=== PATIENT | male | born 1995 ===

== ENCOUNTER 2018-12-01 18:15 | Inpatient (IN) | payer BC ==
--- NOTE | 2018-12-01 18:22 | Event Note ---
ED Screening Note ED Screening Note: Pt states he had periumbilical abd pain and now having in the RLQ +nausea no vomiting, no diarrhea had a BM yesterday last had something to eat last night PMHx anxiety no allergies to meds no abd surgeries no one in his family had appendicitis +marijuana +ETOH This initial assessment/diagnostic orders/clinical plan/treatment(s) is/are subject to change based on patients health status, clinical progression and re- assessment by fellow clinical providers in the ED. Further treatment and workup at subsequent clinical providers discretion. Patient/guardian urged not to elope from the ED as their condition may be serious if not clinically assessed and managed. Initial orders include: labs, UA, abd XR
[2018-12-01 18:45] LABS: Basophils % (Auto) 0.2 % (0.0-1.8); Hematocrit 45.2 % (35.5-45.6); Hemoglobin 15.4 gm/dl (11.8-15.2); Lymphocytes # (Auto) 1.1 K/mm3 (1.2-5.4); Lymphocytes % (Auto) 6.1 % (13.4-35.0); Mean Corpuscular HGB Conc 34 % (32-34); Mean Corpuscular Volume 93 fl (84-94); Monocytes # (Auto) 1.1 K/mm3 (0.0-0.8); Monocytes % (Auto) 6.5 % (0.0-7.3); Platelet Count 336 K/mm3 (140-440); Red Blood Count 4.88 M/mm3 (3.65-5.03); Red Cell Distribution Width 13.8 % (13.2-15.2)
[2018-12-01 19:19] LABS: Alanine Aminotransferase 60 units/L (7-56); Albumin 4.7 g/dL (3.9-5); BUN/Creatinine Ratio 18; Blood Urea Nitrogen 14 mg/dL (9-20); Calcium 9.2 mg/dL (8.4-10.2); Hemolysis Index 15
--- NOTE | 2018-12-01 19:38 | XRay Report ---
ABDOMEN 4 VIEW(S) INDICATION / CLINICAL INFORMATION: abd pain, constipation. COMPARISON: None available. FINDINGS: TUBES / LINES: None. BOWEL GAS PATTERN: Retained colonic barium is seen within the transverse, sigmoid and right colon. No bowel obstruction. FREE AIR / EXTRALUMINAL GAS: None seen. ADDITIONAL FINDINGS: No significant additional findings. IMPRESSION: 1. No significant abnormality. Signer Name: Randell Mederos MD Signed: 12/01/2018 7:33 PM Workstation Name: [id number]
[2018-12-01] MEDS ORDERED: ZOFRAN IV ONE (23:39)
[2018-12-01] MEDS ORDERED: NACL 0.9% 1000 ML 1,000 ML IV ONE (23:39)
[2018-12-01] MEDS ORDERED: PEPCID IV ONE (23:40)
[2018-12-01] MEDS ORDERED: MORPHINE IV ONE (23:40)
--- NOTE | 2018-12-02 01:42 | Cat Scan Report ---
CT abdomen pelvis w con INDICATION / CLINICAL INFORMATION: abdominal pain. TECHNIQUE: All CT scans at this location are performed using CT dose reduction for ALARA by means of automated e xposure control. COMPARISON: None available. FINDINGS: No acute disease is seen in either lower lung. ABDOMEN: The gallbladder, liver, spleen and pancreas are normal. No renal abnormalities. Mild bowel dilatation. Pelvis: The appendix is enlarged with thickened wall and periappendiceal edema. No localized fluid collections are seen in the right lower quadrant or dependently within the pelvis. No acute skeletal finding. IMPRESSION: 1. Acute appendicitis. Signer Name: Sunny Luis MD Signed: 12/02/2018 1:38 AM Workstation Name: [id number]
[2018-12-02] MEDS ORDERED: MORPHINE IV ONE (01:50)
[2018-12-02] MEDS ORDERED: ZOSYN/NS 4.5GM/100ML 4.5 GM/100 ML VIAL IV ONE (01:50)
[2018-12-02] MEDS ORDERED: ZOFRAN IV ONE (01:50)
--- NOTE | 2018-12-02 01:58 | Emergency Department Report ---
ED Abdominal Pain HPI - General Chief Complaint: Abdominal Pain Stated Complaint: LOWER ABD PAIN/NAUSEA/BLOATING Time Seen by Provider: 12/01/18 18:20 Source: patient Mode of arrival: Ambulatory Limitations: No Limitations - History of Present Illness Initial Comments: Patient is a 23 yo male with no past medical history who presents to the ED with c/o acute onset persistent severe acute RLQ abdominal pain with nausea x >12 hours. Patient states that the pain radiates to the periumbilical area. Patient states the pain is worse with any movement or palpation. Patient denies diarrhea, vomiting, fever, chills, dizziness, chest pain, shortness of breath, dysuria, any urinary frequency and urgency, testicular pain, hematuria or low back pain. MD Complaint: abdominal pain, other (nausea) -: Sudden, hour(s) (>12) Location: periumbilical, RLQ Radiation: RLQ Migration to: periumbilical, RLQ Severity: severe Severity scale (0 -10): 7 Quality: cramping, aching, sharp Consistency: constant Improves With: nothing Worsens With: movement Associated Symptoms: denies other symptoms, nausea. denies: vomiting, diarrhea, fever, chills, constipation, dysuria, hematemesis, melena, hematuria, anorexia, syncope - Related Data Allergies Allergy/AdvReac Type Severity Reaction Status Date / Time No Known Allergies Allergy Unverified 12/01/18 18:16 ED Review of Systems ROS: Stated complaint: LOWER ABD PAIN/NAUSEA/BLOATING Other details as noted in HPI Constitutional: denies: chills, fever Eyes: denies: eye pain, eye discharge, vision change ENT: denies: ear pain, throat pain Respiratory: denies: cough, shortness of breath, wheezing Cardiovascular: denies: chest pain, palpitations Endocrine: no symptoms reported Gastrointestinal: abdominal pain, nausea. denies: diarrhea Genitourinary: denies: urgency, dysuria Musculoskeletal: denies: back pain, joint swelling, arthralgia Skin: denies: rash, lesions Neurological: denies: headache, weakness, paresthesias Psychiatric: denies: anxiety, depression Hematological/Lymphatic: denies: easy bleeding, easy bruising ED Past Medical Hx - Past Medical History Hx Psychiatric Treatment: Yes (anxiety) - Surgical History Past Surgical History?: No - Social History Smoking Status: Never Smoker Substance Use Type: Alcohol, Marijuana ED Physical Exam - General Limitations: No Limitations General appearance: alert, in no apparent distress - Head Head exam: Present: atraumatic, normocephalic, normal inspection - Eye Eye exam: Present: normal appearance, PERRL, EOMI. Absent: scleral icterus Pupils: Present: normal accommodation - ENT ENT exam: Present: normal exam, normal orophraynx, mucous membranes moist, TM's normal bilaterally, normal external ear exam - Neck Neck exam: Present: normal inspection, full ROM - Respiratory Respiratory exam: Present: normal lung sounds bilaterally. Absent: respiratory distress, wheezes, rales, rhonchi, stridor, chest wall tenderness, accessory muscle use, decreased breath sounds, prolonged expiratory - Cardiovascular Cardiovascular Exam: Present: normal rhythm, tachycardia, normal heart sounds. Absent: systolic murmur, diastolic murmur, rubs, gallop - GI/Abdominal GI/Abdominal exam: Present: soft, tenderness (RLQ tenderness), guarding, rebound, normal bowel sounds. Absent: hyperactive bowel sounds, hypoactive bowel sounds, organomegaly, mass, bruit, pulsatile mass - Rectal Rectal exam: Present: deferred - Extremities Exam Extremities exam: Present: normal inspection, full ROM, normal capillary refill - Back Exam Back exam: Present: normal inspection, tenderness. Absent: CVA tenderness (L), muscle spasm, paraspinal tenderness - Neurological Exam Neurological exam: Present: alert, oriented X3 - Psychiatric Psychiatric exam: Present: normal affect, normal mood - Skin Skin exam: Present: warm, dry, intact, normal color. Absent: rash ED Course Vital Signs 12/01/18 12/02/18 12/02/18 18:20 00:14 01:20 Temperature 98.0 F 98.5 F Pulse Rate 103 H 76 Respiratory 18 16 22 Rate Blood Pressure 137/86 Blood Pressure 130/73 [Left] O2 Sat by Pulse 98 95 Oximetry - Reevaluation(s) Reevaluation #1: 12/02/18 01:56 Patient is alert and oriented 3, appears to be in pain, tachycardic in triage but in no acute distress. Lab test results were reviewed and shows acute leukocytosis of 17,500, and slightly limited ALT levels of 60. The rest of the lab test results are unremarkable. Patient was treated for pain and nausea in the ED, and also given normal saline 1 L IV bolus. Abdomen pelvis CT scan with contrast shows an enlarged appendix with thickened wall and periappendiceal edema. There are no localized fluid collections seen in the right lower quadrant or dependently within the pelvis. These findings are consistent with acute appendicitis. The gallbladder, liver, pancreas and kidneys appear all normal. Antibiotics Zosyn 4.5 mg IV was ordered in addition to pain medication and antiemetics, as well as titrated normal saline IV infusion. Patient is advised to remain nothing by mouth. I paged the general surgeon manager of environmental services Dr. Garcia, who advised that the patient be kept NPO and be admitted by the Hospitalist Physician manager of environmental services, and he shall consult on the patient in the morning. I discussed the patient's case with the Hospitalist Physician manager of environmental services Dr. Cage, who admitted the patient to the Hospital for further evaluation 12/02/18 01:58 12/02/18 02:05 ED Medical Decision Making - Lab Data Result diagrams: 12/01/18 18:38 12/01/18 18:38 - Radiology Data Radiology results: report reviewed, image reviewed Referring Physician: PETR BETH Patient Name: GENNA ALAMO Date of : 1995 Sex: Male Report Date: 2018-12-02 Report Status: [place] [address] Cat Scan Report Signed Patient: GENNA DRISCOLL MR#: [id number] : 1995 Acct:[id number] Age/Sex: 23 / M ADM Date: 12/01/18 Loc: ED Attending Dr: Ordering Physician: CHANO BHATTI Date of Service: 12/01/18 Procedure(s): CT abdomen pelvis w con Accession Number(s): [id number] cc: CHANO BHATTI CT abdomen pelvis w con INDICATION / CLINICAL INFORMATION: abdominal pain. TECHNIQUE: All CT scans at this location are performed using CT dose reduction for ALARA by means of automated exposure control. COMPARISON: None available. FINDINGS: No acute disease is seen in either lower lung. ABDOMEN: The gallbladder, liver, spleen and pancreas are normal. No renal abnormalities. Mild bowel dilatation. Pelvis: The appendix is enlarged with thickened wall and periappendiceal edema. No localized fluid collections are seen in the right lower quadrant or dependently within the pelvis. No acute skeletal finding. IMPRESSION: 1. Acute appendicitis. Signer Name: Sunny Luis MD Signed: 12/02/2018 1:38 AM Workstation Name: [id number] Transcribed By: PAULETTE Dictated By: Sunny Luis MD Electronically Authenticated By: Sunny Luis MD Signed Date/Time: 12/02/18137 DD/ 3 TD/TT: - Medical Decision Making Patient is alert and oriented 3, appears to be in pain, tachycardic in triage but in no acute distress. Lab test results were reviewed and shows acute leuk ocytosis of 17,500, and slightly limited ALT levels of 60. The rest of the lab test results are unremarkable. Patient was treated for pain and nausea in the ED, and also given normal saline 1 L IV bolus. Abdomen pelvis CT scan with contrast shows an enlarged appendix with thickened wall and periappendiceal edema. There are no localized fluid collections seen in the right lower quadrant or dependently within the pelvis. These findings are consistent with acute appendicitis. The gallbladder, liver, pancreas and kidneys appear all normal. Antibiotics Zosyn 4.5 mg IV was ordered in addition to pain medication and antiemetics, as well as titrated normal saline IV infusion. Patient is advi sed to remain nothing by mouth. I paged the general surgeon manager of environmental services Dr. Garcia, who advised that the patient be kept NPO and be admitted by the Hospitalist Physician manager of environmental services, and he shall consult on the patient in the morning. I discussed the patient's case with the Hospitalist Physician manager of environmental services Dr. Cage, who admitted the patient to the Hospital for further evaluation - Differential Diagnosis Abdominal pain in RLQ; acute appendicitis, Kidney stones; Pancreatitis Critical care attestation.: If time is entered above; I have spent that time in minutes in the direct care of this critically ill patient, excluding procedure time. ED Disposition Clinical Impression: Acute abdominal pain in right lower quadrant Acute appendicitis Qualifiers: Acute appendicitis type: unspecified acute appendicitis type Qualified Code(s): K35.80 - Unspecified acute appendicitis Disposition: OP ADMIT IP TO THIS HOSP Is pt being admited?: Yes Does the pt Need Aspirin: No Condition: Stable Referrals: SOLA PATIÑO MD [Primary Care Provider] - 3-5 Days Time of Disposition: 02:09 Print Language: PAPUA [place]
[2018-12-02] MEDS ORDERED: TYLENOL PO PRN (02:51)
[2018-12-02] MEDS ORDERED: SODIUM CHLORIDE FLUSH SYRINGE 10 ML IV PRN (02:51)
[2018-12-02] MEDS ORDERED: PERCOCET 5/325 PO PRN (02:51)
[2018-12-02] MEDS ORDERED: ZOFRAN IV PRN ×2 (02:51→10:26)
[2018-12-02] MEDS ORDERED: NS/KCL 20MEQ 20 MEQ/1,000 ML BAG IV SCH (03:00)
[2018-12-02] MEDS ORDERED: NACL 0.9% 1000 ML 1,000 ML IV SCH ×2 (03:00→10:00)
--- NOTE | 2018-12-02 03:02 | History and Physical Report ---
History of Present Illness Date of examination: 12/02/18 Chief complaint: Umbilical Pain History of present illness: Patient is a 23-year-old male with history of anxiety disorder who presented to the ED on account of a day history of umbilical Pain. He described it as sharp in character, rated 10 over 10, constant in duration and radiating to the right lower quadrant of the abdomen. No known aggravating or relieving factors. He has associated nausea without vomiting, constipation, shortness of breath and chills without fever. He denies dysuria, frequency, cough, chest pain, leg swe lling, orthopnea, PND, headaches, syncope or loss of consciousness. No reported preceding trauma. Past History Past Medical History: other (anxiety disorder and panic attacks) Past Surgical History: No surgical history Social history: other (he is an ex-cigarette smoker. He smoked for 2 years and quit 4 years ago. He has history of moderate alcohol consumption and occasional marijuana use. He denies other illicit drug use) Family history: other (father has history of diabetes. No known family history of hypertension or heart disease) Medications and Allergies Allergies Allergy/AdvReac Type Severity Reaction Status Date / Time No Known Allergies Allergy Unverified 12/01/18 18:16 Active Meds: Active Medications Acetaminophen (Tylenol) 650 mg PO Q4H PRN PRN Reason: Pain MILD(1-3)/Fever >100.5/VALLEJO Potassium Chloride/Sodium Chloride (Ns/Kcl 20meq) 20 meq in 1,000 mls @ 100 mls/hr IV DIRECT ROGELIO Piperacillin Sod/Tazobactam Sod (Zosyn/Ns 3.375gm/50ml) 3.375 gm in 50 mls @ 100 mls/hr IV Q8HR ROGELIO; Protocol Morphine Sulfate (Morphine) 4 mg IV Q4H PRN PRN Reason: Pain , Severe (7-10) Ondansetron HCl (Zofran) 4 mg IV Q4H PRN PRN Reason: Nausea And Vomiting Oxycodone/Acetaminophen (Percocet 5/325) 1 tab PO Q4H PRN PRN Reason: Pain, Moderate (4-6) Sodium Chloride (Sodium Chloride Flush Syringe 10 Ml) 10 ml IV BID ROGELIO Sodium Chloride (Sodium Chloride Flush Syringe 10 Ml) 10 ml IV PRN PRN PRN Reason: LINE FLUSH Review of Systems All systems: negative (Except as documented in the HPI, 14 point system reviewed were negative) Exam - Constitutional Vitals: Temp Pulse Resp BP Pulse Ox 98.5 F 76 19 130/73 95 12/02/18 01:20 12/02/18 01:20 12/02/18 02:06 12/02/18 01:20 12/02/18 01:20 General appearance: Present: no acute distress, well-nourished - EENT Eyes: Present: PERRL, EOM intact ENT: hearing intact, clear oral mucosa - Neck Neck: Present: supple, normal ROM - Respiratory Respiratory effort: normal Respiratory: bilateral: CTA - Cardiovascular Rhythm: regular Heart Sounds: Present: S1 & S2. Absent: rub, click - Extremities Extremities: pulses symmetrical, No edema Peripheral Pulses: within normal limits - Abdominal General gastrointestinal: Present: soft, tender (right lower quadrant), non- distended, normal bowel sounds Male genitourinary: Present: deferred - Integumentary Integumentary: Present: clear, warm, dry - Musculoskeletal Musculoskeletal: gait normal, strength equal bilaterally - Psychiatric Psychiatric: appropriate mood/affect, intact judgment & insight - Neurologic Neurologic: CNII-XII intact, moves all extremities Results - Labs CBC & Chem 7: 12/01/18 18:38 12/01/18 18:38 Labs: Laboratory Last Values WBC 17.5 K/mm3 (4.5-11.0) H 12/01/18 18:38 RBC 4.88 M/mm3 (3.65-5.03) 12/01/18 18:38 Hgb 15.4 gm/dl (11.8-15.2) H 12/01/18 18:38 Hct 45.2 % (35.5-45.6) 12/01/18 18:38 MCV 93 fl (84-94) 12/01/18 18:38 MCH 32 pg (28-32) 12/01/18 18:38 MCHC 34 % (32-34) 12/01/18 18:38 RDW 13.8 % (13.2-15.2) 12/01/18 18:38 Plt Count 336 K/mm3 (140-440) 12/01/18 18:38 Lymph % (Auto) 6.1 % (13.4-35.0) L 12/01/18 18:38 [place] % (Auto) 6.5 % (0.0-7.3) 12/01/18 18:38 Eos % (Auto) 0.0 % (0.0-4.3) 12/01/18 18:38 Baso % (Auto) 0.2 % (0.0-1.8) 12/01/18 18:38 Lymph # 1.1 K/mm3 (1.2-5.4) L 12/01/18 18:38 [place] # 1.1 K/mm3 (0.0-0.8) H 12/01/18 18:38 Eos # 0.0 K/mm3 (0.0-0.4) 12/01/18 18:38 Baso # 0.0 K/mm3 (0.0-0.1) 12/01/18 18:38 Seg Neutrophils % 87.2 % (40.0-70.0) H 12/01/18 18:38 Seg Neutrophils # 15.2 K/mm3 (1.8-7.7) H 12/01/18 18:38 Sodium 140 mmol/L (137-145) 12/01/18 18:38 Potassium 3.7 mmol/L (3.6-5.0) 12/01/18 18:38 Chloride 101.7 mmol/L (98-107) 12/01/18 18:38 Carbon Dioxide 25 mmol/L (22-30) 12/01/18 18:38 17 mmol/L 12/01/18 18:38 BUN 14 mg/dL (9-20) 12/01/18 18:38 0.8 mg/dL (0.8-1.5) 12/01/18 18:38 Estimated GFR > 60 ml/min 12/01/18 18:38 18 % 12/01/18 18:38 Glucose 103 mg/dL (75-100) H 12/01/18 18:38 Calcium 9.2 mg/dL (8.4-10.2) 12/01/18 18:38 0.90 mg/dL (0.1-1.2) 12/01/18 18:38 AST 29 units/L (5-40) 12/01/18 18:38 ALT 60 units/L (7-56) H 12/01/18 18:38 95 units/L (35-129) 12/01/18 18:38 7.8 g/dL (6.3-8.2) 12/01/18 18:38 4.7 g/dL (3.9-5) 12/01/18 18:38 1.5 % 12/01/18 18:38 15 units/L (13-60) 12/01/18 18:38 - Imaging and Cardiology CT scan - abdomen: report reviewed CT scan - pelvis: report reviewed Assessment and Plan Assessment and plan: Acute appendicitis -On NPO and IV antibiotic with Zosyn -Surgery consulted in the ED SIRS due to the appendicitis -On IV antibiotic Transaminitis -Likely due to the acute process -We will monitor levels Anxiety disorder and panic attacks -Resume home medications DVT prophylaxis with SCD Time spent: 35 minutes
[2018-12-02] MEDS ORDERED: ATIVAN IV PRN (03:08)
[2018-12-02 03:28] LABS: Bilirubin,Urine NEG (Negative); Blood,Urine NEG (Negative); Color,Urine Straw (Yellow); Mucus,Urine FEW /HPF; Protein,Urine <15 mg/dL mg/dL (Negative); Urobilinogen,Urine < 2.0 mg/dL (<2.0)
[2018-12-02] MEDS: MORPHINE IV PRN ×3 (05:23→17:12)
[2018-12-02] MEDS: ZOSYN/NS 3.375GM/50ML 3.375 GM/50 ML BAG IV SCH ×3 (06:23→23:00)
[2018-12-02] MEDS ORDERED: SODIUM CHLORIDE FLUSH SYRINGE 10 ML IV SCH (10:00)
--- NOTE | 2018-12-02 10:15 | Consultation ---
History of Present Illness Consult date: 12/02/18 Reason for consult: abdominal pain Requesting physician: PETR BETH Chief complaint: lower abdominal pain - History of present illness History of present illness: 23yo M presented to emergency room with acute onset of lower abdominal pain. Reports that yesterday he began to have cramping sensations near the belly button. It progressed to the right lower quadrant. The pain progressively became worse. Had mild nausea but no vomiting. Denies any fevers or chills. Did have some brief sweating. Thing like this before. Positive bloating. Past History Past Medical History: other (anxiety disorder and panic attacks) Past Surgical History: No surgical history Social history: other (he is an ex-cigarette smoker. He smoked for 2 years and quit 4 years ago. He has history of moderate alcohol consumption and occasional marijuana use. He denies other illicit drug use) Family history: other (father has history of diabetes. No known family history of hypertension or heart disease) Medications and Allergies Allergies Allergy/AdvReac Type Severity Reaction Status Date / Time No Known Allergies Allergy Unverified 12/01/18 18:16 Home Medications Medication Instructions Recorded Confirmed Last Taken Type No Known Home Medications [No 12/02/18 12/02/18 Unknown History Reported Home Medications] Active Meds: Active Medications Acetaminophen (Tylenol) 650 mg PO Q4H PRN PRN Reason: Pain MILD(1-3)/Fever >100.5/VALLEJO Potassium Chloride/Sodium Chloride (Ns/Kcl 20meq) 20 meq in 1,000 mls @ 100 mls/hr IV DIRECT ROGELIO Last Admin: 12/02/18 06:22 Dose: 100 mls/hr Documented by: Piperacillin Sod/Tazobactam Sod (Zosyn/Ns 3.375gm/50ml) 3.375 gm in 50 mls @ 100 mls/hr IV Q8HR ROGELIO; Protocol Last Admin: 12/02/18 06:23 Dose: 100 mls/hr Documented by: Sodium Chloride (Nacl 0.9% 1000 Ml) 1,000 mls @ 0 mls/hr IV ONCE ROGELIO Stop: 12/03/18 10:01 Lorazepam (Ativan) 1 mg IV Q4H PRN PRN Reason: Agitation Morphine Sulfate (Morphine) 4 mg IV Q4H PRN PRN Reason: Pain , Severe (7-10) Last Admin: 12/02/18 10:13 Dose: 4 mg Documented by: Ondansetron HCl (Zofran) 4 mg IV Q4H PRN PRN Reason: Nausea And Vomiting Oxycodone/Acetaminophen (Percocet 5/325) 1 tab PO Q4H PRN PRN Reason: Pain, Moderate (4-6) Sodium Chloride (Sodium Chloride Flush Syringe 10 Ml) 10 ml IV BID ROGELIO Sodium Chloride (Sodium Chloride Flush Syringe 10 Ml) 10 ml IV PRN PRN PRN Reason: LINE FLUSH Review of Systems - Constitutional sweats, no fever, no chills, no chronic pain - Cardiovascular no chest pain, no shortness of breath - Respiratory no cough - Gastrointestinal abdominal pain, nausea, dyspepsia/bloating, no vomiting - Genitourinary no flank pain - Muskuloskeletal no low back pain - Integumentary no rash, no wounds Exam Vital Signs Temp Pulse Resp BP Pulse Ox 98.0 F 103 H 18 137/86 98 12/01/18 18:20 12/01/18 18:20 12/01/18 18:20 12/01/18 18:20 12/01/18 18:20 - General physical appearance Positive: no distress, moderate pain, obese - Eyes Positive: normal occular movement - Respiratory Positive: normal expansion, normal respiratory effort, clear to auscultation - Cardiovascular Rhythm: regular - Abdomen Abdomen: Present: soft, tender (in RLQ and a little in the epigastric area), bowel sounds hypoactive. Absent: distended, masses, rebound, guarding, rigid, wound, surgical scars - Integumentary no rash, no growths, no abnormal pigmentation - Neurologic Neurologic: alert and oriented to time, place and person, motor strength and sensation are grossly intact - Psychiatric Psychiatric: appropriate mood/affect, intact judgment & insight, cooperative Results - Labs 12/01/18 18:38 12/01/18 18:38 Abnormal lab results 12/01/18 12/01/18 12/02/18 Range/Units 18:38 18:38 02:28 WBC 17.5 H (4.5-11.0) K/mm3 Hgb 15.4 H (11.8-15.2) gm/dl Lymph % (Auto) 6.1 L (13.4-35.0) % Lymph # 1.1 L (1.2-5.4) K/mm3 [place] # 1.1 H (0.0-0.8) K/mm3 Seg Neutrophils % 87.2 H (40.0-70.0) % Seg Neutrophils # 15.2 H (1.8-7.7) K/mm3 Glucose 103 H (75-100) mg/dL ALT 60 H (7-56) units/L Ur Specific [place] 1.060 H (1.003-1.030) Diabetes panel 12/01/18 Range/Units 18:38 Sodium 140 (137-145) mmol/L Potassium 3.7 (3.6-5.0) mmol/L Chloride 101.7 (98-107) mmol/L Carbon Dioxide 25 (22-30) mmol/L BUN 14 (9-20) mg/dL Creatinine 0.8 (0.8-1.5) mg/dL Glucose 103 H (75-100) mg/dL Calcium 9.2 (8.4-10.2) mg/dL AST 29 (5-40) units/L ALT 60 H (7-56) units/L Alkaline Phosphatase 95 (35-129) units/L Total Protein 7.8 (6.3-8.2) g/dL Albumin 4.7 (3.9-5) g/dL Calcium panel 12/01/18 Range/Units 18:38 Calcium 9.2 (8.4-10.2) mg/dL Albumin 4.7 (3.9-5) g/dL Pituitary panel 12/01/18 Range/Units 18:38 Sodium 140 (137-145) mmol/L Potassium 3.7 (3.6-5.0) mmol/L Chloride 101.7 (98-107) mmol/L Carbon Dioxide 25 (22-30) mmol/L BUN 14 (9-20) mg/dL Creatinine 0.8 (0.8-1.5) mg/dL Glucose 103 H (75-100) mg/dL Calcium 9.2 (8.4-10.2) mg/dL Adrenal panel 12/01/18 Range/Units 18:38 Sodium 140 (137-145) mmol/L Potassium 3.7 (3.6-5.0) mmol/L Chloride 101.7 (98-107) mmol/L Carbon Dioxide 25 (22-30) mmol/L BUN 14 (9-20) mg/dL Creatinine 0.8 (0.8-1.5) mg/dL Glucose 103 H (75-100) mg/dL Calcium 9.2 (8.4-10.2) mg/dL Total Bilirubin 0.90 (0.1-1.2) mg/dL AST 29 (5-40) units/L ALT 60 H (7-56) units/L Alkaline Phosphatase 95 (35-129) units/L Total Protein 7.8 (6.3-8.2) g/dL Albumin 4.7 (3.9-5) g/dL - Imaging CT scan - abdomen: report reviewed, image reviewed CT scan - pelvis: report reviewed, image reviewed Assessment and Plan - Patient Problems (1) Acute appendicitis Current Visit: Yes Status: Acute Qualifiers: Acute appendicitis type: unspecified acute appendicitis type Qualified Code(s): K35.80 - Unspecified acute appendicitis Plan to address problem: Pt stable. Discussed surgery vs medical mgmt. Pros and cons discussed for each. Pt elected surgery. Procedure, risks, benefits discussed. All questions answered. Consent obtained. Will proceed to OR today. time=30min
[2018-12-02] MEDS ORDERED: SUBLIMAZE IV PRN (10:26)
--- NOTE | 2018-12-02 11:33 | Event Note ---
Date: 12/02/18 Patient seen and examined, Continue current outlined treatment plan. Otto Surgeon. Patient for OR today.
[2018-12-02] MEDS ORDERED: SUBLIMAZE ONE (12:09)
[2018-12-02] MEDS ORDERED: ZEMURON IV ONE (12:09)
[2018-12-02] MEDS ORDERED: DIPRIVAN 10 MG/ML IV ONE (12:10)
[2018-12-02] MEDS ORDERED: VERSED ONE (12:10)
[2018-12-02] MEDS ORDERED: NACL 0.9% 1000 ML 1,000 ML ONE (12:49)
--- NOTE | 2018-12-02 13:00 | Anesthesia Day of Surgery ---
Anesthesia Day of Surgery - Day of Surgery Patient Examined: Yes Patient H&P Reviewed: Yes Patient is NPO: Yes
--- NOTE | 2018-12-02 13:01 | Anesthesia Consultation ---
Anesthesia Consult and Med Hx Date of service: 12/02/18 - Airway Anesthetic Teeth Evaluation: Good ROM Head & Neck: Adequate Mental/Hyoid Distance: Adequate Mallampati Class: Class II Intubation Access Assessment: Good - Pre-Operative Health Status ASA Pre-Surgery Classification: ASA2, Emergency Proposed Anesthetic Plan: General - Pulmonary Hx Smoking: Yes (marijuana) Hx Asthma: No SOB: No COPD: No Hx Pneumonia: No Hx Sleep Apnea: No - Cardiovascular System Hx Hypertension: No Hx Coronary Artery Disease: No Hx Heart Attack/AMI: No Hx Angina: No Hx Percutaneous Transluminal Coronary Angioplasty (PTCA): No Hx Pacemaker: No Hx Internal Defibrillator: No Hx Valvular Heart Disease: No Hx Heart Murmur: No Hx Peripheral Vascular Disease: No - Central Nervous System Hx Seizures: No CVA: No Hx Psychiatric Problems: Yes (Anxiety and panic attacks) - Gastrointestinal Hx Ulcer: No - Endocrine Hx Renal Disease: No Hx End Stage Renal Disease: No Hx Cirrhosis: No Hx Liver Disease: No Hx Hypothyroidism: No Hx Hyperthyroidism: No - Hematic Hx Sickle Cell Disease: No - Other Systems Hx Alcohol Use: Yes Hx Substance Use: Yes (MJ)
[2018-12-02] MEDS ORDERED: MARCAINE 0.5% INFILTRATI ONE ×2 (13:12→13:18)
[2018-12-02] MEDS ORDERED: XYLOCAINE 1% 20 mL ONE (13:12)
[2018-12-02] MEDS ORDERED: XYLOCAINE 1% 20 mL INFILTRATI ONE (13:18)
[2018-12-02] MEDS ORDERED: ZOFRAN ONE (13:30)
[2018-12-02] MEDS ORDERED: DECADRON ONE (13:30)
[2018-12-02] MEDS ORDERED: ROBINUL ONE (13:30)
[2018-12-02] MEDS ORDERED: BLOXIVERZ ONE (13:30)
[2018-12-02] MEDS ORDERED: TORADOL ONE (13:34)
[2018-12-02] MEDS ORDERED: NORCO 5/325 PO PRN (13:46)
--- NOTE | 2018-12-02 13:49 | Post Operative Note ---
Date of procedure: 12/02/18 (dictation:[id number]) Pre-op diagnosis: acute appendicitis Post-op diagnosis: same Findings: enlarge, inflamed appy with small amount of purulent fluid in the vicinity Procedure: Lap appy IVF 1L EBL min Anesthesia: GETA Surgeon: MOSES CHIN Estimated blood loss: minimal Pathology: list (appendix) Specimen disposition: to lab Condition: stable Disposition: PACU
[2018-12-02] MEDS: DILAUDID IV PRN ×3 (14:35→22:01)
[2018-12-02] MEDS ORDERED: DILAUDID ONE (14:37)
--- NOTE | 2018-12-02 15:00 | Operative Report ---
PREOPERATIVE DIAGNOSIS: Acute appendicitis. POSTOPERATIVE DIAGNOSIS: Acute appendicitis. PROCEDURE: Laparoscopic appendectomy. ATTENDING PHYSICIAN: Antonia Garcia MD ANESTHESIA: General. ESTIMATED BLOOD LOSS: Minimal. FLUIDS: 1 liter. FINDINGS: Inflamed thickened appendix with a small amount of purulent appearing fluid in the vicinity. Rest of the bowels were normal. No other pathology was found. SPECIMENS: Appendix. DRAINS: None. COMPLICATIONS: None. DISPOSITION: Stable, transferred to Recovery Room. INDICATIONS: This is a 23-year-old male, who presented with acute onset of abdominal pain began in the periumbilical area and localized to the right lower quadrant. The patient presented for evaluation. ER diagnosed the patient with acute appendicitis and general Surgery was consulted. The patient was assessed to be in need for surgery. Procedure, risks, and benefits were explained to the patient. Risks included but were not limited to infection, bleeding, pain, injury to surrounding structures, possible need for further procedures in the future. The patient understood and consented. OPERATIVE NOTE: The patient was brought to the operating room and placed on the table in supine position. After adequate general anesthesia was established, the patient was prepped and draped in the usual sterile fashion. The patient was already on antibiotics. SCDs had been placed. Timeout was called. We began by placing a Veress needle in the left upper quadrant. I was able to insufflate on the first attempt. A 5 mm port was placed at the umbilicus. Using the Optiview technique, I entered the peritoneal cavity safely. I examined the area where the Veress needle was at. There was no injury to the underlying structures. The Veress needle was removed. A 5 mm port was placed in the suprapubic midline and a 12 mm port in the left lower quadrant. All sites had been injected with 0.5% Marcaine and 1% lidocaine mix. We immediately saw some purulent looking fluid and then after mobilizing the bowel, I identified the appendix. The mesoappendix was taken down with the LigaSure device. We had to mobilize the cecum from the lateral wall in order to have enough room for the stapler. Once all the surrounding attachments and mesoappendix were completely divided and the base was free, laparoscopic stapler was inserted with a blue load. I was able to seat the cartridge right at the base, so that we had a flush staple line on the cecum. The staple line was completely hemostatic. Specimen was placed in EndoCatch bag and left on the side. We thoroughly irrigated and suctioned out the area. I saw no further evidence of any purulent material and there was no bleeding. Everything looked very good. We removed the EndoCatch bag from the 12 mm port site. Using the Nate-Steven fascial closure device, we closed the fascia with an 0 Vicryl stitch, removed the ports under direct vision. We desufflated the abdomen completely. Additional local was injected into the sites. Skin sites were closed with 4-0 Monocryl subcuticular stitches. Skin was cleaned and dried. Dermabond was placed. The patient tolerated the procedure well. There were no complications. All counts were correct at the end of the case. JOB# [id number] SOFIA/GAVI
[2018-12-03] MEDS: MORPHINE IV PRN (01:55)
[2018-12-03 05:15] LABS: Basophils % (Auto) 0.2 % (0.0-1.8); Hematocrit 39.3 % (35.5-45.6); Hemoglobin 13.6 gm/dl (11.8-15.2); Lymphocytes # (Auto) 0.8 K/mm3 (1.2-5.4); Lymphocytes % (Auto) 7.5 % (13.4-35.0); Mean Corpuscular HGB Conc 35 % (32-34); Mean Corpuscular Volume 93 fl (84-94); Monocytes # (Auto) 0.9 K/mm3 (0.0-0.8); Monocytes % (Auto) 8.6 % (0.0-7.3); Platelet Count 261 K/mm3 (140-440); Red Blood Count 4.22 M/mm3 (3.65-5.03); Red Cell Distribution Width 13.7 % (13.2-15.2)
[2018-12-03 05:34] LABS: BUN/Creatinine Ratio 8; Blood Urea Nitrogen 5 mg/dL (9-20); Calcium 8.4 mg/dL (8.4-10.2); Hemolysis Index 4
[2018-12-03] MEDS: ZOSYN/NS 3.375GM/50ML 3.375 GM/50 ML BAG IV SCH (06:28)
[2018-12-03 07:42] VITALS: BP 104/58
--- NOTE | 2018-12-03 10:08 | Discharge Summary ---
Providers - Providers Date of Admission: 12/02/18 04:08 Attending physician: LORENA STEPHEN MD 12/02/18 02:12 Consult to Physician [CONS] Stat Comment: [employer] SALESPERSON/PA Carson spoke with Dr. Chin @ [phone] Consulting Provider: MOSES CHIN Physician Instructions: Keep patient NPO, Pain medication, Antibiotics Reason For Exam: acute appendicitis Primary care physician: SOLA PATIÑO Hospitalization Reason for admission: ABDOMINAL PAIN Condition: Stable Hospital course: Patient is a 23-year-old male with history of anxiety disorder who presented to the ED on account of a day history of umbilical Pain. He described it as sharp in character, rated 10 over 10, constant in duration and radiating to the right lower quadrant of the abdomen. No known aggravating or relieving factors. He has associated nausea without vomiting, constipation, shortness of breath and chills without fever. He denies dysuria, frequency, cough, chest pain, leg swelling, orthopnea, PND, headaches, syncope or loss of consciousness. No reported preceding trauma. Patient was noted to have appendicits and proceeded to surgery with no noted complications. post operatively patient is doing well, tolerating diet and have Flatus and stable for discharge at this time. Diagnosis Acute Appendicitis SIRS secondary to appendicitis with no organ dysfuction Transaminitis Anxiety disorder and panic attacks Disposition: DC-01 TO HOME OR SELFCARE Time spent for discharge: 35 MINS Core Measure Documentation - Palliative Care Palliative Care/ Comfort Measures: Not Applicable - Core Measures Any of the following diagnoses?: none Exam - Physical Exam Narrative exam: VITAL SIGNS: Reviewed. GENERAL: The patient appears normally developed, Vital signs as documented. HEAD: No signs of head trauma. EYES: Pupils are equal. Extraocular motions intact. EARS: Hearing grossly intact. MOUTH: Oropharynx is normal. NECK: No adenopathy, no JVD. CHEST: Chest with clear breath sounds bilaterally. No wheezes, rales, or rhonchi. CARDIAC: Regular rate and rhythm. S1 and S2, without murmurs, gallops, or rubs. VASCULAR: No Edema. Peripheral pulses normal and equal in all extremities. ABDOMEN: Soft, tender around surgical site but no overt drainage noted and non distended. No rebound or guarding, and no masses palpated. Bowel Sounds normal. MUSCULOSKELETAL: Good range of motion of all major joints. Extremities without clubbing, cyanosis or edema. NEUROLOGIC EXAM: Alert and oriented x 3 No focal sensory or strength def icits. Speech normal. Follows commands. PSYCHIATRIC: Mood normal. SKIN: detial exam as documented in skin assessment - Constitutional Vitals: Temp Pulse Resp BP Pulse Ox 98.0 F 69 20 104/58 97 12/03/18 07:01 12/03/18 07:01 12/03/18 07:01 12/03/18 07:01 12/03/18 07:01 Plan Activity: advance as tolerated, fall precautions Diet: low fat Special Instructions: record daily BP diary Follow up with: SOLA PATIÑO MD [Primary Care Provider] - 3-5 Days MOSES CHIN MD [Staff Physician] - 14 Days Prescriptions: Amoxicillin/Potassium Clav [Augmentin 875-125 Tablet] 1 each PO BID #14 tablet HYDROcodone/APAP 5-325 [[place] 5-325 mg TAB] 1 each PO Q6H PRN #14 tablet PRN Reason: Pain, Moderate (4-6)
--- NOTE | 2018-12-03 10:16 | Progress Note ---
Assessment and Plan - Patient Problems (1) Acute appendicitis Current Visit: Yes Status: Acute Qualifiers: Acute appendicitis type: unspecified acute appendicitis type Qualified Code(s): K35.80 - Unspecified acute appendicitis Plan to address problem: s/p lap appy - 12/02 - POD#1. Doing well. tolerating diet Rec: 1) d/c home today 2) PO Abx for 1 week - Augmentin ok 3) f/u in 2 weeks 4) May shower today - Pat dry wounds. 5) no heavy lifting or strenuous activity. Please call with questions. Subjective Date of service: 12/03/18 Patient Reports: Positive: no new complaints, feels better, pain is less, tolerating a regular diet. Negative: nausea, vomiting Objective Vital Signs - 12hr 12/02/18 12/03/18 12/03/18 22:31 00:12 01:55 Temperature 97.9 F Pulse Rate 73 Respiratory 17 18 17 Rate Blood Pressure 128/73 O2 Sat by Pulse 94 Oximetry 12/03/18 12/03/18 12/03/18 02:25 04:46 07:01 Temperature 97.4 F L 98.0 F Pulse Rate 62 69 Respiratory 17 18 20 Rate Blood Pressure 112/55 104/58 O2 Sat by Pulse 95 97 Oximetry - General physical appearance no distress, no pain - Eyes normal occular movement - Abdomen soft, not tender, not distended, not guarding, not rigid, surgical scars (C/D/I) - Psychiatric oriented to time, oriented to person, oriented to place, speech is normal, memory intact - Labs 12/03/18 04:49 12/03/18 04:49 Diabetes panel 12/03/18 Range/Units 04:49 Sodium 139 (137-145) mmol/L Potassium 3.8 (3.6-5.0) mmol/L Chloride 102.9 (98-107) mmol/L Carbon Dioxide 28 (22-30) mmol/L BUN 5 L (9-20) mg/dL Creatinine 0.6 L (0.8-1.5) mg/dL Glucose 114 H (75-100) mg/dL Calcium 8.4 (8.4-10.2) mg/dL Calcium panel 12/03/18 Range/Units 04:49 Calcium 8.4 (8.4-10.2) mg/dL Pituitary panel 12/03/18 Range/Units 04:49 Sodium 139 (137-145) mmol/L Potassium 3.8 (3.6-5.0) mmol/L Chloride 102.9 (98-107) mmol/L Carbon Dioxide 28 (22-30) mmol/L BUN 5 L (9-20) mg/dL Creatinine 0.6 L (0.8-1.5) mg/dL Glucose 114 H (75-100) mg/dL Calcium 8.4 (8.4-10.2) mg/dL Adrenal panel 12/03/18 Range/Units 04:49 Sodium 139 (137-145) mmol/L Potassium 3.8 (3.6-5.0) mmol/L Chloride 102.9 (98-107) mmol/L Carbon Dioxide 28 (22-30) mmol/L BUN 5 L (9-20) mg/dL Creatinine 0.6 L (0.8-1.5) mg/dL Glucose 114 H (75-100) mg/dL Calcium 8.4 (8.4-10.2) mg/dL
== END 2018-12-03 11:57 | disposition home or self-care (01) | DRG 343 ==
LOC: ED 18:15 → 3B-SURG 12-02 04:08
PROVIDERS: ADMIT Internal Medicine; ATTEND Internal Medicine
PROC: 0DTJ4ZZ Resection of Appendix, Percutaneous Endoscopic Approach (ICD-10-PCS; principal; 2018-12-02)
DX: K35.80 Unspecified acute appendicitis (principal); F41.9 Anxiety disorder, unspecified; F12.90 Cannabis use, unspecified, uncomplicated; R74.0 Nonspecific elevation of levels of transaminase and lactic acid dehydrogenase [LDH]; F41.0 Panic disorder [episodic paroxysmal anxiety]; Z87.891 Personal history of nicotine dependence; Z83.3 Family history of diabetes mellitus; Z72.89 Other problems related to lifestyle
CPT/HCPCS: 36415; 74019; 74177; 80048; 80053; 81001; 83690; 83735; 85025; 88304; 96361; 96365; 96366; 96375; 96376; G0378; J1100; J1170; J1885; J2250; J2270; J2405; J2543; J2704; J2710; J3010; J7030; Q9967